=== PATIENT | female | born 1945 | race Caucasian/White ===

== ENCOUNTER 2020-10-12 09:35 | Outpatient (CLI) | payer MEDICARE | END 2020-10-12 09:36 | disposition home or self-care (01) | LOC: CSHMRI 09:35 | PROVIDERS: ATTEND Otolaryngology Plastic Surgery within the Head & Neck | DX: H81.4 Vertigo of central origin (principal); R51.9 Headache, unspecified | CPT/HCPCS: 70553 ==

== ENCOUNTER 2021-05-04 11:11 | Outpatient (CLI) | payer MEDICARE ==
[2021-05-04 12:24] LABS: Hemoglobin 13.8 g/dL (12.0-15.5); Mean Corpuscular HGB CONC 32.3 g/dL (32.0-36.0); Mean Corpuscular Hemoglobin 31.4 pg (27.0-33.0); Mean Platelet Volume 12.2 fl (7.4-10.4); Platelet Count 239 10x3/uL (150-450); RBC Distribution Width 12.6 % (11.5-14.5); White Blood Cell (WBC) Count 5.6 10x3/uL (3.5-10.5)
[2021-05-04 13:05] LABS: Anion Gap 14 mmol/L (10-20); BUN (Urea Nitrogen) 15 mg/dL (9.8-20.1); Calc. Creatinine Clearance 0 mL/min (70-130); Calcium 9.5 mg/dL (7.8-10.44); Carbon Dioxide 26 mmol/L (23-31); Chloride 106 mmol/L (98-107); Glucose 95 mg/dL (83-110); Potassium 4.1 mmol/L (3.5-5.1); Sodium 142 mmol/L (136-145)
[2021-05-04 22:09] LABS: SARS-CoV-2 PCR by NAA Not Detected (NotDetected)
== END 2021-05-04 11:12 | disposition home or self-care (01) ==
LOC: CSHLAB 11:11
PROVIDERS: ATTEND Otolaryngology Plastic Surgery within the Head & Neck
DX: Z01.818 Encounter for other preprocedural examination (principal); Z20.822 Contact with and (suspected) exposure to COVID-19
CPT/HCPCS: 80048; 85027; 93005; 93010; U0003; U0005

== ENCOUNTER 2021-05-08 08:27 | Day surgery (SDC) | payer MEDICARE ==
[2021-05-04 15:12] VITALS: BMI 23.6
[2021-05-08] MEDS ORDERED: Lidocaine 1% MPF 2 ML VIAL ONE (08:37)
[2021-05-08] MEDS ORDERED: Midazolam HCl 2 mg/2 ml Vial ONE (10:48)
[2021-05-08] MEDS ORDERED: Fentanyl 100 MCG/2 ML VIAL ONE ×2 (10:54→11:32)
[2021-05-08] MEDS ORDERED: PROPOFOL 20 ML ONE ×2 (10:54)
[2021-05-08] MEDS ORDERED: PHENYLEPHRINE-NS 100 MCG/ML 10 ML SYRINGE ONE (11:23)
[2021-05-08] MEDS ORDERED: ePHEDrine Sulfate 50 MG/10 ML VIAL ONE (11:27)
[2021-05-08] MEDS ORDERED: Phenylephrine 10 MG/ML VIAL ONE (11:33)
[2021-05-08] MEDS ORDERED: Phenylephrine 40 MG/NS 250 ML 0 ML ONE (11:33)
[2021-05-08] MEDS ORDERED: Dexamethasone 20 MG/5 ML VIAL ONE (11:37)
[2021-05-08] MEDS ORDERED: Lidocaine 1% w/Epinephrine 1:100K 20 ML VIAL ONE (11:48)
[2021-05-08] MEDS ORDERED: Ondansetron PF 4 MG/2 ML Vial ONE (11:51)
== END 2021-05-08 14:20 | disposition home or self-care (01) ==
LOC: CSHSDC 08:27
PROVIDERS: ATTEND Otolaryngology Plastic Surgery within the Head & Neck
PROC: 0GTN0ZZ Resection of Right Inferior Parathyroid Gland, Open Approach (ICD-10-PCS; principal; 2021-05-08)
DX: D35.1 Benign neoplasm of parathyroid gland (principal); E21.3 Hyperparathyroidism, unspecified; J32.9 Chronic sinusitis, unspecified; Z79.899 Other long term (current) drug therapy; Z88.0 Allergy status to penicillin; Z91.041 Radiographic dye allergy status; Z01.818 Encounter for other preprocedural examination
CPT/HCPCS: 60500; 78070; 83970; 88334; A9500; 36415; 88305; 88331; 88342; J1100; J2250; J2370; J2405; J2704; J3010

== ENCOUNTER 2021-05-08 09:26 | Outpatient (CLI) | payer MEDICARE | END 2021-05-08 09:27 | disposition home or self-care (01) | LOC: CSHNM 09:26 | PROVIDERS: ATTEND Otolaryngology Plastic Surgery within the Head & Neck | DX: Z01.818 Encounter for other preprocedural examination (principal) | CPT/HCPCS: 78070; A9500 ==

== ENCOUNTER 2021-05-17 09:18 | Outpatient (CLI) | payer MEDICARE | END 2021-05-17 09:19 | disposition home or self-care (01) | LOC: CSHMRI 09:18 | PROVIDERS: ATTEND Psychiatry & Neurology Neurology | DX: R27.0 Ataxia, unspecified (principal); R42 Dizziness and giddiness; M47.12 Other spondylosis with myelopathy, cervical region; J32.9 Chronic sinusitis, unspecified | CPT/HCPCS: 70551; 72141 ==

== ENCOUNTER 2021-06-05 10:39 | Outpatient (CLI) | payer MEDICARE | END 2021-06-05 10:40 | disposition home or self-care (01) | LOC: CSHULT 10:39 | PROVIDERS: ATTEND Psychiatry & Neurology Neurology | DX: I63.9 Cerebral infarction, unspecified (principal) | CPT/HCPCS: 93880 ==